=== PATIENT | male | born 1980 | race Caucasian/White ===

== ENCOUNTER 2020-09-01 14:30 | Emergency (ER) | payer OTHER ==
[~2020-09-01] VITALS: Ht 182.9 cm; Wt 99.8 kg
[2020-09-01 14:59] LABS: ABSOLUTE BASOPHILS 0.1 thou/uL (0.0-0.2); ABSOLUTE EOSINOPHILS 0.1 thou/uL (0.0-0.7); ABSOLUTE LYMPHOCYTES 5.5 thou/uL (0.8-5.3); ABSOLUTE MONOCYTES 0.9 thou/uL (0.0-1.2); ABSOLUTE NEUTROPHILS 6.6 thou/uL (1.6-8.1); BASOPHILS 0.8 %; HEMATOCRIT 46.1 % (42.0-52.0); HEMOGLOBIN 15.8 gm/dL (14.0-18.0); LYMPHOCYTES 41.5 %; MCH 30.1 pg (26.0-34.0); MCHC 34.3 g/dL (28.0-37.0); MCV 87.6 fL (80.0-100.0); MONOCYTES 6.8 %; NUCLEATED RBCS 0 /100WBC; PLATELET COUNT* 382 thou/uL (150-400); POLYS 49.9 %; RBC 5.26 mil/uL (4.50-6.00); RDW-CV 13.2 % (10.5-14.5); WBC 13.2 thou/uL (4.0-11.0)
[2020-09-01 15:11] LABS: CALCIUM 9.3 mg/dL (8.5-10.1); CREATININE 1.2 mg/dL (0.6-1.3); POTASSIUM 3.2 mmol/L (3.5-5.1)
[2020-09-01 15:15] LABS: APTT 20.8 Seconds (25.0-31.3); PROTIME 10.6 Seconds (9.20-11.50)
[2020-09-01 15:16] LABS: ALBUMIN 4.2 g/dL (3.4-5.0); TOTAL BILIRUBIN 0.7 mg/dL (<0.1-1.0); TOTAL PROTEIN 7.6 g/dL (6.4-8.2)
[2020-09-01] MEDS ORDERED: NORCO5 PO (17:39)
[2020-09-01 18:09] VITALS: BP 130/65
== END 2020-09-01 17:50 | disposition left against medical advice (07) ==
LOC: M.ERS 14:30
PROVIDERS: Nurse Practitioner Family
DX: S01.81XA Laceration without foreign body of other part of head, initial encounter (principal); S63.592A Other specified sprain of left wrist, initial encounter; F17.210 Nicotine dependence, cigarettes, uncomplicated; Z91.013 Allergy to seafood; W18.39XA Other fall on same level, initial encounter; Y93.51 Activity, roller skating (inline) and skateboarding; Y92.89 Other specified places as the place of occurrence of the external cause; Y99.8 Other external cause status